=== PATIENT | female | born 1975 | race Hispanic/Latino ===

== ENCOUNTER 2022-12-08 10:58 | Emergency (ER) | payer MEDICAID, SELFPAY ==
--- NOTE | ~2022-12-08 | US_ITS ---
Limited Abdominal Sonogram: Real-time sonographic imaging of the right upper quadrant was performed. Clinical History: Abdominal pain Findings: The liver appears normal with no evidence of mass lesion or bile duct dilatation. Main por dexter vein demonstrates normal direction of flow. The gallbladder is well distended, without evidence o f gallstone. Gallbladder polyps measuring up to 3 mm in size. The common bile duct measures 6 mm. Th e visualized pancreas, aorta, and IVC are unremarkable. Impression: 3 mm gallbladder wall polyps. Reviewed, dictated and finalized at location M. Impression: 3 mm gallbladder wall polyps.
--- NOTE | ~2022-12-08 | CT_ITS ---
EXAMINATION: CT abdomen pelvis wo con DATE: 12/08/2022 13:09 INDICATION: Right flank pain TECHNIQUE: Computed tomography (CT) of the abdomen and pelvis was performed without intravenous contr ast. Automated exposure control and iterative reconstruction technique were employed. The dose-length product was 396.13 mGy-cm. COMPARISON: None FINDINGS: Lung bases are clear. Heart size normal. No pericardial or pleural effusion. Liver, gallbladder, sple en, pancreas and bilateral adrenal glands are normal. Kidneys and ureters are normal with no urolithi asis, hydroureteronephrosis or perinephric/ureteral stranding. Bladder, uterus and bilateral adnexa a re unremarkable. There is mild colonic diverticulosis with a descending colon predominance but withou t adjacent inflammatory change to suggest diverticulitis. Small bowel and appendix are normal. Small fat-containing left inguinal hernia. No free intraperitoneal gas or fluid. No pathologically enlarge d abdominal or pelvic lymphadenopathy. Chronic appearing mild anterior wedging at T10 and T11. Mild s cattered degenerative skeletal changes in the spine and pelvis. IMPRESSION: 1. No urolithiasis or acute intra-abdominal/pelvic process. Reviewed, dictated and finalized at location A.
[2022-12-08 11:00] VITALS: BP 131/79; PULSE 108; RESP 20; TEMP 36.6; O2SAT 99
[2022-12-08] MEDS: ONDANSETRON INJ 4 MG/2 ML VIAL IV PUSH (11:37)
[2022-12-08] MEDS: MORPHINE SULFATE (*CRX) 4 MG/ML INJ IV PUSH (11:37)
[2022-12-08 11:47] LABS: Basophils Absolute Auto 0.1 K/mm3 (0.0-0.1); Basophils Percent Auto 0.8 % (0.2-1.2); Eosinophils Absolute Auto 0.1 K/mm3 (0-0.3); Eosinophils Percent Auto 1.4 % (0-4.4); Hematocrit 41.1 % (37.0-47.0); Hemoglobin 13.9 g/dL (12.0-15.0); Immature Granulocyte Absolute 0.02 K/mm3 (0.00-0.031); Immature Granulocyte Percent A 0.3 % (0-0.5); Lymphocytes Absolute Auto 1.25 K/mm3 (0.9-3.2); Lymphocytes Percent Auto 16.9 % (18.3-44.2); Mean Corpuscular HGB Conc 33.8 g/dl (32-36); Mean Corpuscular Hemoglobin 32.3 pg (26-34); Mean Corpuscular Volume 95.4 fl (80-100); Mean Platelet Volume 10.1 fl (7.4-10.4); Monocytes Absolute Auto 0.6 K/mm3 (0.1-0.6); Monocytes Percent Auto 8.4 % (2.6-8.5); Neutrophils Absolute Auto 5.3 K/mm3 (1.3-6.7); Neutrophils Percent Auto 72.2 % (45.5-73.1); Platelet Count Result 301 k/mm3 (150-375); Red Blood Count 4.31 M/mm3 (4.2-5.4); Red Cell Distribution Width 11.9 % (11.5-14.5); White Blood Count 7.4 K/mm3 (4.5-10.0)
[2022-12-08 11:52] LABS: Appearance Urine Cloudy (Clear); Bacteria Urine None Seen /hpf; Bilirubin Urine Negative (Negative); Blood Urine 1+ (Negative); Color Urine Yellow (Yellow); Glucose Urine UA Negative (Negative); Ketones Urine Negative (Negative); Leukocyte Esterase Ur Negative LEU/UL (Negative); Nitrate Urine Negative (Negative); Non Pathogenic Casts 0-2; Protein Urine Negative (Negative); Specific Grav Ur 1.014 (1.001-1.035); Squamous Epithelial Cell Urine Occasional /hpf (Few); Urobilinogen Urine 0.2 mg/dL (<2.0); WBC Urine 0-5 /hpf; pH Urine 7.5 (5.0-9.0)
[2022-12-08 11:56] LABS: Add Urine Microscopic? YES
[2022-12-08 11:59] LABS: Alanine Aminotransferase 23 U/L (6-35); Albumin Level 4.2 g/dL (3.5-5.1); Alkaline Phosphatase 83 U/L (38-126); Anion Gap 7 mmol/L (8-16); Aspartate Amino Transferase 29 U/L (14-36); Bilirubin,Total 0.4 mg/dL (0.2-1.3); Blood Urea Nitrogen 8 mg/dL (7-17); Calcium 8.8 mg/dL (8.4-10.2); Carbon Dioxide 28 mmol/L (22-30); Chloride 99 mmol/L (98-107); Estimated CRCL calculation 98 ml/min; Estimated Glomerular Filt Rate > 60; Glucose 107 mg/dL (65-110); Lipase 92 U/L (23-300); Potassium 3.6 mmol/L (3.4-5.0); Sodium 134 mmol/L (137-145)
--- NOTE | 2022-12-08 12:32 | ED.ABDPAIN ---
HPI - Abdominal Pain General Chief Complaint: Abdominal Pain <Ab Randle MD - Last Filed: 12/08/22 12:47> Stated Complaint: Pain in right side <Ab Randle MD - Last Filed: 12/08/22 12:47> Time Seen by Provider: 12/08/22 11:08 <Ab Randle MD - Last Filed: 12/08/22 12:47> History of Present Illness HPI narrative: Patient is a 47-year-old female who presents ER with right-sided abdominal pain. Its in the right upper quadrant radiates to the right flank. Associated with nausea and vomiting at times. Intermittent over the last month. No history of gallstones. No history of kidney stones. Denies urinary frequency urgency or dysuria. She has no fevers or chills or sweats. She was found no alleviating factors. She was referred here by her PCP. <Ab Randle MD - Last Filed: 12/08/22 12:47> Related Data Allergies/Adverse Reactions: Allergies Allergy/AdvReac Type Severity Reaction Status Date / Time No Known Allergies Allergy Unverified 06/29/15 03:28 <Ab Randle MD - Last Filed: 12/08/22 12:47> Review of Systems Review of Systems: All systems reviewed & are unremarkable except as noted in HPI and below <Ab Randle MD - Last Filed: 12/08/22 12:47> Constitutional: Constitutional: Denies chills and Denies fever(s) <Ab Randle MD - Last Filed: 12/08/22 12:47> ENT: Denies nasal congestion and Denies sore throat <Ab Randle MD - Last Filed: 12/08/22 12:47> Cardiovascular: Cardiovascular: Denies chest pain, Reports rapid heart rate and Denies radiating jaw, neck or arm pain <Ab Randle MD - Last Filed: 12/08/22 12:47> Gastrointestinal: Gastrointestinal: Reports abdominal pain, Denies diarrhea, Reports nausea and Reports vomiting <Ab Randle MD - Last Filed: 12/08/22 12:47> Genitourinary: Genitourinary: Denies nocturia, Denies dysuria and Reports flank pain <Ab Randle MD - Last Filed: 12/08/22 12:47> PMFSH Past Medical History Medical History: Medical History (Updated 12/09/22 @ 00:00 by Background Rochelle) Healthy female adult <Ab Randle MD - Last Filed: 12/08/22 12:47> Surgical History Surgical History: Surgical History (Updated 12/08/22 @ 12:34 by Ab Randle MD) No history of previous surgery <Ab Randle MD - Last Filed: 12/08/22 12:47> Exam Narrative: GENERAL: Well-appearing, well-nourished, and in no acute distress. HEAD: Normocephalic, atraumatic. ENT: Mucous membranes moist. NECK: Supple. CHEST: Clear to auscultation. No respiratory distress. HEART: Regular rate and rhythm. Normal peripheral pulses. ABDOMEN: Soft, tender palpation right upper quadrant without guarding, nondistended, normal active bowel sounds. EXTREMITIES: Normal range of motion. No edema. SKIN: Warm, dry, no rash. NEURO: Alert and oriented x3. PSYCH: Normal mood and affect. <Ab Randle MD - Last Filed: 12/08/22 12:47> Course PSYCHIATRIC RN/PA Physician Supervision 13:00 - Patient signed out to me by previous ED physician, Dr. Randle pending CT abdomen and likely discharge. 14:45 - Right upper quadrant ultrasound shows 3 mm gallbladder polyps with a 6 mm common bile duct but no stones or other indications of infection. CT abdomen/pelvis not concerning for stone. UA demonstrates changes consistent with microscopic hematuria but no other changes concerning for UTI. I discussed these findings with the patient through [employer] translating services. The patient also complains of anxiety and requests treatment. She denies SI or HI. Will prescribe a short course of Atarax and discharged with primary care follow-up. Discussed return and emergency precautions including signs/symptoms of acute abdomen. The patient voiced understanding and is comfortable with the plan. All questions answered to her satisfaction. <Uche Godinez MD - Last Filed: 12/09/22 07:12> Vital Signs Vital
--- NOTE | 2022-12-08 12:33 | ECG_ITS ---
Measurements Intervals [place] Rate: 87 P: 47 DE: 141 QRS: 7 QRSD: 88 T: 27 QT: 361 QTc: 435 Interpretive Statements SINUS RHYTHM LOW QRS VOLTAGE OTHERWISE NORMAL ECG NO PREVIOUS ECG AVAILABLE FOR COMPARISON Electronically Signed On 12-08-2022 16:16:13 CDT by Joel Singh M.D.
[2022-12-08 13:12] VITALS: BP 127/74; PULSE 98; RESP 15; O2SAT 100
[2022-12-08 13:31] VITALS: BP 122/79; PULSE 91; RESP 15; O2SAT 100
[2022-12-08 14:01] VITALS: BP 121/76; PULSE 96; RESP 14; O2SAT 98
[2022-12-08 14:31] VITALS: BP 122/75; PULSE 99; RESP 17; O2SAT 100
[2022-12-08 15:10] VITALS: BP 117/71; PULSE 93; RESP 16; O2SAT 100
== END 2022-12-08 15:12 | disposition home or self-care (01) ==
PROVIDERS: Emergency Medicine; Emergency Provider Preventive Medicine Aerospace Medicine; PCP Emergency Medicine
DX: R10.11 Right upper quadrant pain (principal); K82.4 Cholesterolosis of gallbladder; F41.9 Anxiety disorder, unspecified
CPT/HCPCS: 36415; 74176; 76705; 80053; 81001; 81025; 83690; 85025; 93005; 96374; 96375; 99284; J2270; J2405

== ENCOUNTER 2023-03-30 08:37 | Outpatient (CLI) | payer MEDICAID, SELFPAY ==
--- NOTE | ~2023-03-30 | MR_ITS ---
MRI of the abdomen: Clinical indication: Abdominal pain. Technique: Coronal SSFSE ARC, WATER:coronal LAVA-FLEX, Coronal 2D FIESTA FatSat, Axial SSFSE BH ARC, Axial 3D DualEcho BH, Axial SSFSE-IR, Axial DWI b=500, Axial 2D FIESTA FatSat, pre and dynamic postco ntrast Axial LAVA ARC, postcontrast Coronal In and Opposed phase LAVA FLEX. Following intravenous adm inistration of 12 cc MultiHance gadolinium, T1-weighted fat-sat imaging was performed in the axial an d coronal planes. Findings: Gallbladder is unremarkable. The common bile duct is normal in course and caliber. No filli ng defects are seen within the CBD. No evidence of intrahepatic biliary ductal dilatation. The pancre atic duct is normal in size. Liver, spleen, pancreas, adrenals, kidneys appear normal. The aorta and the paraaortic regions appear normal. No abnormal postcontrast enhancement identified. Impression: No significant abnormality seen. Reviewed, dictated and finalized at [facility]. Impression: No significant abnormality seen.
== END 2023-03-30 08:38 | disposition home or self-care (01) ==
PROVIDERS: PCP Physician Assistant; Visit Provider Physician Assistant
DX: R10.11 Right upper quadrant pain (principal); N28.1 Cyst of kidney, acquired
CPT/HCPCS: 74183; A9577